=== PATIENT | male | born 1985 | race Caucasian/White ===

== ENCOUNTER 2017-09-28 08:29 | Emergency (ER) | payer MEDICARE, SELFPAY ==
[2017-09-28 08:40] VITALS: BP 141/93; PULSE 121; RESP 18; TEMP 37.1; O2SAT 96; BMI 28.1
--- NOTE | 2017-09-28 08:50 | [facility].EDURI ---
ED Disposition Clinical Impression: Influenza Disposition: Home, Self-Care Condition on Discharge: Good Instructions: DI for Influenza -- Adult Additional Instructions: You are being provided with a list of physicians available for follow-up of your condition. Please call a physician on this list to arrange a follow-up appointment as soon as possible. Prescriptions: Oseltamivir Phosphate [Tamiflu 75mg Capsule] 75 mg PO BID #10 cap - Critical Care Critical Care Time: No Attestation: On , the high probability of a clinically significant, sudden or life threatening deterioration of the following system(s) required my full and direct attention, intervention and personal management. The time I documented below is in addition to time spent performing reported procedures but includes the following listed in this critical care notation. Medical Decision Making Vital Signs: 09/28/17 08:40 Temperature 98.8 F Temperature Source Oral Pulse Rate [Right Radial] 121 H Respiratory Rate 18 Blood Pressure [Right Arm] 141/93 Blood Pressure Mean [Right Arm] 109 Blood Pressure Source [Right Arm] Automatic Cuff Blood Pressure Position [Right Arm] Sitting 02 Sat by Pulse Oximetry 96 Oxygen Delivery Method Room Air - Lab Data Lab Results 09/28/17 08:50: Influenza Type A Ag Negative, Influenza Type B Ag Negative, Group A Strep Rapid Negative Orders (Tests/Meds): ORDERS Category Date Time Status Strep Screen Confirmation Stat Micro 09/28/17 08:50 Received - Brian Inquiry Pt receiving controlled substance: No Medical Decision Making Narrative: Clinically, the patient has influenza with known exposures. I will treat with Tamiflu. URI/Sore Throat HPI - General Chief Complaint: Upper Respiratory Infection Stated Complaint: Coughing,fever,sore throat Mode of Arrival: Ambulatory Limitations: No Limitations Description of Symptoms (Recalled from ER Triage Doc. by RN): states I think that I have the flu. My child was diagnosed the other day. - History of Present Illness HPI Narrative: The patient says he believes he has the flu. 4 of his children tested positive for the flu this week. He came down with symptoms yesterday. He has not had a flu shot this year. He has typical symptoms of cough, sore throat, rhinorrhea, malaise. Denies headache. He has chronic body aches which she says are unchanged. No vomiting or diarrhea. - Related Data Home Medications Medication Instructions Recorded Confirmed PARoxetine HCl [Paxil 20mg Tablet] 20 mg PO DAILY 09/28/17 09/28/17 Previous Rx's Medication Instructions Recorded Oseltamivir Phosphate [Tamiflu 75 mg PO BID #10 cap 09/28/17 75mg Capsule] Allergies Allergy/AdvReac Type Severity Reaction Status Date / Time Penicillins Allergy Mild Verified 09/28/17 08:46 [facility] History I have reviewed the patient's past medical history: Yes Medical History: Denies:: Cancer, Diabetes Mellitus Type 1, Diabetes Mellitus Type 2, MRSA Amputation: No - *Social History Educational Level: Completed High School Alcohol Intake: never - Psychiatric History Expresses thoughts of harming self/others: None Suicide Plan Description: No Plan ROS Obtained: Yes All systems reviewed & no additional complaints - Constitutional Constitutional: Reports fever(s), Reports malaise - ENT Ears, Nose, Mouth, and Throat: Reports nasal congestion, Reports nasal discharge, Reports sore throat - Cardiovascular Cardiovascular: Denies chest pain - Gastrointestinal Gastrointestingal: Denies: abdominal pain, diarrhea, vomiting - Neurologic Neurologic: Denies headache(s) Physical Exam - General General appearance: alert, in no apparent distress Comment: Frequent cough, mild bilateral conjunctival injection - Head Head exam: atraumatic, normocephalic, normal inspection - Eye Eye exam: Present: normal appearance, PERRL, EOMI - ENT ENT exam: Pr
[2017-09-28 09:05] LABS: Strep Scrn Group A (Rapid) Negative (Negative)
[2017-09-28 09:36] VITALS: BP 127/85; PULSE 106; RESP 18; O2SAT 94
== END 2017-09-28 09:43 | disposition home or self-care (01) ==
PROVIDERS: Emergency Provider Emergency Medicine
DX: J11.1 Influenza due to unidentified influenza virus with other respiratory manifestations (principal)
CPT/HCPCS: 87275; 87276; 87430; 99283

== ENCOUNTER → 2019-05-05 10:32 | Outpatient (POV) | payer BC, SELFPAY | PROVIDERS: Visit Provider Otolaryngology | DX: Z00.00 Encounter for general adult medical examination without abnormal findings (principal) ==